=== PATIENT | female | born 1965 | race Caucasian/White ===

== ENCOUNTER 2019-03-23 05:14 | Day surgery (SDC) | payer OTHER ==
--- NOTE | 2019-03-22 13:22 | Pre-Procedure Note/Attestation ---
Pre-Procedure Note/Attestation Complete Prior to Procedure Planned Procedure: left Procedure Narrative: cataract extraction with implant left eye Indications for Procedure Pre-Operative Diagnosis: cataract left eye Attestation I attest that I discussed the nature of the procedure; its benefits; risks and complications; and alternatives (and the risks and benefits of such alternatives ), prior to the procedure, with the patient (or the patient's legal customer relations representative). I attest that, if there was a reasonable possibility of needing a blood transfusion, the patient (or the patient's legal customer relations representative) was given the [facility] standardized written summary, pursuant to the Zhen Lissett Blood Safety Act ([place] Health and Safety Code # 1645, as amended). I attest that I re-evaluated the patient just prior to the surgery and that there has been no change in the patient's H&P, except as documented below: Evelio Vinson MD Mar 22, 2019 13:22
[2019-03-23] VITALS (10 sets, daily range): BP systolic 93–116; BP diastolic 48–65
[~2019-03-23] VITALS: Ht 175.3 cm; Wt 109.3 kg
[~2019-03-23 05:14] MED LIST: ALLEGRA-D 24 H1 EACH PO
[2019-03-23] MEDS ORDERED: Tropicamide 1% Opth 15ml Soln ONE (05:38)
[2019-03-23] MEDS ORDERED: Tobradex Opth Susp 2.5ml ONE (05:38)
[2019-03-23] MEDS ORDERED: Vigamox Opth Soln 3ml ONE (05:38)
[2019-03-23] MEDS ORDERED: Akten 3.5% 1ml Btl ONE (05:38)
[2019-03-23] MEDS ORDERED: Diclofenac Sod 0.1% Op Soln ONE (05:38)
[2019-03-23] MEDS ORDERED: Phenylephrine 2.5% Op 2ml Soln ONE (05:38)
[2019-03-23] MEDS: Akten 3.5% 1ml Btl LEFT EYE SCH ×3 (05:51→06:20)
[2019-03-23] MEDS: Tobradex Opth Susp 2.5ml LEFT EYE SCH ×3 (05:52→06:20)
[2019-03-23] MEDS: Diclofenac Sod 0.1% Op Soln LEFT EYE SCH ×3 (05:52→06:20)
[2019-03-23] MEDS: Phenylephrine 2.5% Op 2ml Soln LEFT EYE SCH ×3 (05:52→06:20)
[2019-03-23] MEDS: Tropicamide 1% Opth 15ml Soln LEFT EYE SCH ×3 (05:52→06:20)
[2019-03-23] MEDS: Vigamox Opth Soln 3ml LEFT EYE SCH ×3 (05:53→06:20)
[2019-03-23] MEDS ORDERED: Carbachol 0.01% Op Soln 1.5ml vial ONE (07:02)
[2019-03-23] MEDS ORDERED: EPINEPHrine 1mg/1ml Amp ONE (07:02)
[2019-03-23] MEDS ORDERED: Lidocaine 1% MPF 10mg/ml 5ml ONE (07:02)
[2019-03-23] MEDS ORDERED: BSS 500ml btl ONE (07:03)
[2019-03-23] MEDS ORDERED: Povidone-Iodine 5% opth solution ONE (07:03)
[2019-03-23] MEDS ORDERED: acetaZOLAMIDE 500mg Inj ONE (07:03)
[2019-03-23] MEDS ORDERED: Dexamethasone 4mg/ml vial ONE (07:03)
[2019-03-23] MEDS ORDERED: BSS 15ml BTL ONE (07:03)
[2019-03-23] MEDS ORDERED: Sodium Hyaluronate 14 mg/ml 0.85ml ONE (07:03)
[2019-03-23] MEDS ORDERED: Midazolam 2mg/2ml Inj ONE (07:18)
[2019-03-23] MEDS ORDERED: fentaNYL 100 mcg/2 mL IV ONE (07:18)
--- NOTE | 2019-03-23 07:34 | Anethesia Preoperative Eval ---
Anesthesia Pre-op PMH/ROS General Date of Evaluation: Mar 23, 2019 Time of Evaluation: 07:33 Anesthesiologist: zakiya ASA Score: ASA 2 Mallampati Score Class I : Soft palate, uvula, fauces, pillars visible Class II: Soft palate, uvula, fauces visible Class III: Soft palate, base of uvula visible Class IV: Only hard plate visible Mallampati Classification: Class III Surgeon: hai Diagnosis: cataract Surgical Procedure: cataract extraction with IOL Anesthesia History: none Family History: no anesthesia problems Allergies: Coded Allergies: CLINDAMYCIN (Verified Allergy, Severe, HIVES, 02/15/19) PENICILLINS (Verified Allergy, Severe, HIVES, 02/15/19) Medications: see eMAR Patient NPO?: Yes NPO Date: Mar 23, 2019 NPO Time: 00:01 Past Medical History Cardiovascular: Denies: HTN, CAD, UT, valve dz, arrhythmia, other Pulmonary: Denies: asthma, COPD, EVE, other Gastrointestinal/Genitourinary: Denies: GERD, CRI, ESRD, other Endocrine: Denies: DM, hypothyroidism, steroids, other HEENT: Reports: cataract (L), glaucoma Hematology/Immune: Denies: anemia, DVT, bleeding disorder, other Musculoskeletal/Integumentary: Denies: OA, RA, DJD, DDD, edema, other Other: obesity PSxH Narrative: cataract surgery Feb 19 Anesthesia Pre-op Phys. Exam Physician Exam Last Vital Signs Date Time Temp Pulse Resp B/P (MAP) Pulse Ox O2 Delivery O2 Flow Rate FiO2 03/23/19 06:08 97.5 73 20 109/65 100 Room Air Constitutional: NAD Neurologic: CN 2-12 intact Cardiovascular: RRR Respiratory: CTA Gastrointestinal: S/NT/ND Airway Exam Mallampati Classification 3 Mallampati Score: Class III MO: limited ROM: full Dentures: no upper, no lower Anesthesia Pre-op A/P Studies Pre-op Studies: EKG - SR Risk Assessment & Plan Assessment: denies changes in health since last surgery Plan: MAC Status Change Before Surgery: No Pre-Antibiotics Drug: denies Jessica Gómez CRNA Mar 23, 2019 07:34
[2019-03-23] MEDS ORDERED: fentaNYL 100 mcg/2 mL IV PRN (07:45)
--- NOTE | 2019-03-23 08:16 | Brief Operative Note ---
Immediate Post Operative Note Operative Note Pre-op Diagnosis: cataract left eye Procedure: phacoemulsification of cataract with implant left eye Post-op Diagnosis: same as pre-op Surgeon: evelio valles md Ceramics Machine Operator: none Anesthesiologist: blayne zelaya crna Anesthesia: MAC Specimen: none Complications: none Condition: stable Fluids: none Estimated Blood Loss: none Drains: none Implant(s) used?: Yes Evelio Valles MD Mar 23, 2019 08:16
--- NOTE | 2019-03-23 08:19 | Immediate Post-Op Evaluation ---
Immediate Post-Op Evalulation Immediate Post-Op Evalulation Procedure: Left eye cataract removal with IOL Date of Evaluation: Mar 23, 2019 Time of Evaluation: 08:15 Blood Pressure Systolic: 116 Blood Pressure Diastolic: 56 Pulse Rate: 64 Respiratory Rate: 14 O2 Sat by Pulse Oximetry: 100 Temperature (Fahrenheit): 98.1 Nausea: No Vomiting: No Patient Status: awake, reacts, patent Hydration Status: adequate Drug: None TarrillionJessica CRNA Mar 23, 2019 08:19
--- NOTE | 2019-03-23 09:30 | Operative Note - Dictated ---
DATE OF OPERATION: 03/23/2019 PREOPERATIVE DIAGNOSIS: Posterior subcapsular cataract, left eye. POSTOPERATIVE DIAGNOSIS: Posterior subcapsular cataract, left eye. PROCEDURE: Phacoemulsification of cataract of left eye with placement of posterior-chamber intraocular lens. SURGEON: Evelio Vinson M.D. FREIGHT HANDLER: None. ANESTHESIOLOGIST: Jessica Gómez CRNA. ANESTHESIA: LMA/topical. INDICATION FOR PROCEDURE: Poor vision, left eye. DESCRIPTION OF FINDINGS: Dense posterior subcapsular cataract, left eye. DESCRIPTION OF PROCEDURE: The patient received a topical anesthetic block consisting of 3.5% Akten eyedrops. The eye was prepped and draped in usual manner. A lid speculum was placed. An operating Zeiss microscope was positioned. A temporal corneal groove was made with the wild blade. A SuperSharp blade made a stab incision at the 6 o'clock position. A 0.1 mL of 1% nonpreserved intracameral lidocaine was injected. Healon was instilled into the anterior chamber. A 2.5/2.8 mm trapezoidal wild blade was used to complete the temporal corneal wound. A cystotome was used to create an anterior capsular flap. Utrata forceps were used to complete the capsulorrhexis. BSS on a cannula was used to hydrodissect the nucleus. The lens nucleus was phacoemulsified in a phaco-fracture technique. Remaining cortical material was removed with the I/A and the posterior capsule was polished with the I/A on Cap vac. Healon was instilled in the capsular bag and anterior chamber, and a TECNIS foldable one-piece pre-loaded posterior-chamber intraocular lens model PCB00, power 20.0 diopters, serial #[id number], was placed in the capsular bag. The I/A tip was used to remove the Healon and position the lens. The wound edge was hydrated with BSS and a blunt-tipped cannula. The wound was checked and found to be watertight. The lid speculum was removed and a drop of TobraDex and Vigamox was placed. A clear plastic shield was taped over the eye. The patient tolerated the procedure well and left the operating room in good condition. Evelio Vinson M.D. ([facility]) DR: Misael JOB#: [id number] CC:
--- NOTE | 2019-03-23 10:03 | 48 Hour Post Anesthesia Eval ---
Post Anesthesia Evaluation Procedure: Left eye cataract removal with IOL Date of Evaluation: Mar 23, 2019 Time of Evaluation: 10:03 Blood Pressure Systolic: 105 0: 50 Pulse Rate: 70 Respiratory Rate: 14 Airway: patent Nausea: No Vomiting: No Hydration Status: adequate Cardiopulmonary Status: stable Mental Status/LOC: patient returned to baseline Post-Anesthesia Complications: none Follow-up care needed: N/A Jessica Gómez CRNA Mar 23, 2019 10:03
== END 2019-03-23 09:35 | disposition home or self-care (01) ==
LOC: SUR 05:14
DX: H25.042 Posterior subcapsular polar age-related cataract, left eye (principal); E66.9 Obesity, unspecified; Z88.0 Allergy status to penicillin; Z68.35 Body mass index [BMI] 35.0-35.9, adult
CPT/HCPCS: 66984; J0171; J1100; J2250; J3010; V2632; 94003; 94150